=== PATIENT | female | born 1995 | race Caucasian/White ===

== ENCOUNTER → 2020-04-16 | Outpatient (CLI) | payer SELFPAY ==
[~2020-04-16] VITALS: Ht 157.5 cm; Wt 73.2 kg
[2020-04-16 21:50] VITALS: BP 121/74; PULSE 99
[2020-04-16 21:55] VITALS: BP 121/74; PULSE 99; TEMP 98.7
[2020-04-16 23:00] VITALS: BP 124/68; PULSE 88; TEMP 98.4
--- NOTE | 2020-04-16 23:20 | NUR ---
Discharge instructions reviewed with pt and spouse. Questions invited and answered. 4144 Ambulatory off unit with spouse.
== END ==
LOC: LDRO 21:52
DX: O62.0 Primary inadequate contractions (principal); Z3A.39 39 weeks gestation of pregnancy

== ENCOUNTER 2020-04-20 08:14 | Inpatient (IN) | payer OTHER ==
[~2020-04-20] VITALS: Ht 157.5 cm; Wt 73.2 kg
[2020-04-20] VITALS (27 sets, daily range): BP systolic 104–132; BP diastolic 59–86; PULSE 74–98; TEMP 97.8–98.7
--- NOTE | 2020-04-20 08:05 | NUR ---
Patient to unit, breathing heavily but controlled through contractions. Patient states contractions became strong and painful around 0645. FHR and contraction monitors placed and explained. SVE 5/100/-1, no bag of rodriguez felt with exam. Patient states at 0645 she felt some water leaking and it was clear fluid. Patient denies symptoms of covid and refuses swab. Assessment completed. Dr. Tompkins called and order received. 0810: IV started in left wrist by Deborah Miller RN. Labs collected from IV site and LR bolus infusing. Patient requests an epidural. Yeni García CRNA called at 0820 for epidural request.
[2020-04-20 08:52] LABS: BASO # 0.1 (0.0-0.2); BASO % 0.4 % (0.0-2.0); EOS # 0.2 (0.0-0.7); EOS % 1.8 % (0-4.0); GRAN # 9.3 (1.4-6.5); GRAN % 69.2 % (42.2-75.2); LYMPH # 2.8 (1.2-3.4); LYMPH % 20.9 % (20.0-51.0); MEAN CELL VOLUME 70 fl (80.0-100.0); MEAN CORPUSCULAR HGB CONC 31 g/dl (33.0-37.0); MEAN PLATELET VOLUME 10.3 fl (7.4-10.4); MONO # 0.9 (0.1-0.6); PLATELET COUNT 515 K/mm3 (130-400); RED BLOOD COUNT 4.23 M/mm3 (4.10-5.30); REDCELL DISTRIBUTION WIDTH-CV 16.6 % (11.5-14.5)
[2020-04-20 08:57] LABS: HEMATOCRIT 29.8 % (37.0-47.0); HEMOGLOBIN 9.3 g/dl (12.5-16.0); MEAN CORPUSCULAR HEMOGLOBIN 22 pg (27.0-31.0)
--- NOTE | 2020-04-20 08:58 | NUR ---
Patient sitting up at side of bed for epidural placement. Yeni García CRNA in room and epidural procedure explained and health hx reviewed. 0900: Single shot given, no reaction noted. 0901: Epidural catheter placed and secured to patient's back. 0906: Patient repositioned and resting wedged left in bed. FHR and contraction monitors repositioned. See anesthesia records.
--- NOTE | 2020-04-20 10:08 | NUR ---
Dalton catheter placed using sterile technique. Patient tolerates well. Patient repositioned and sitting upright in bed.
--- NOTE | 2020-04-20 11:35 | NUR ---
Dr. Tompkins at nurses station and reviews FHR and contractions. 1138: SVE complete. Patient prepped for delivery. 1140: Spontaneous vaginal delivery of infant head, immediately followed by infant body. Infant nose and mouth suctioned with bulb syringe by Dr. Tompkins and infant to mothers abdomen where attended to by Areli Baugh RN. Second degree perineal laceration repaired. 1147: Spontaneous and intact delivery of placenta. Fundus massaged and frim, down 1 from umbilicus. Pericare provided. EBL 200ml. Apgars 8/9/9. See labor and delivery summary, doctor dictation, and anesthesia records. 1220: Fundal massaged and baseball sized clot expressed with small amount of free flow noted. 1228: Dr. Tompkins called and report on Vaginal bleeding and vital signs. Order to given Methergine IM. Given at 1228. 1247: Dalton catheter placed, urine expressed with fundal massage
--- NOTE | 2020-04-20 15:30 | NUR ---
1525: Dalton catheter removed. Patient tolerates well. Patient ambulates to bathroom, pericare provided, new gown on, undwear, pad and tucks pads. Patient ambulates to room 207 where oriented to room and call light. Resting in bed holding . Patient encouraged to get up every hour or 2 to empty bladder.
[2020-04-21 00:10] VITALS: BP 110/68; PULSE 72; TEMP 97.7
[2020-04-21 04:12] VITALS: BP 118/71; PULSE 84; TEMP 97.8
[2020-04-21 08:25] VITALS: BP 116/70; PULSE 86; TEMP 97.8
[2020-04-21 08:48] LABS: HEMATOCRIT 26.2 % (37.0-47.0)
[2020-04-21] MEDS ORDERED: IBU800 M1 PO (08:55)
[2020-04-21] MEDS ORDERED: PERCOCET 325 MG1 TA2 PO (10:15)
== END 2020-04-21 14:15 | disposition home or self-care (01) | DRG 807 ==
LOC: LDR 08:14 → LDRO 08:14 → LDR 08:17 → LDRO 11:12 → OB 15:30
PROVIDERS: ADMIT Obstetrics & Gynecology
PROC: 10E0XZZ Delivery of Products of Conception, External Approach (ICD-10-PCS; principal; 2020-04-20)
PROC: 0KQM0ZZ Repair Perineum Muscle, Open Approach (ICD-10-PCS; 2020-04-20)
DX: O48.0 Post-term pregnancy (principal); Z37.0 Single live birth; O99.02 Anemia complicating childbirth; D64.9 Anemia, unspecified; O70.1 Second degree perineal laceration during delivery; Z3A.40 40 weeks gestation of pregnancy
CPT/HCPCS: J2210; J2590; J2791; J2795; J7120